=== PATIENT | female | born 1960 | race Hispanic/Latino ===

== ENCOUNTER 2017-01-12 10:37 | Day surgery (SDC) | payer BC, OTHER ==
[~2017-01-12 10:37] MED LIST: ANCEF/STERILE WATER 2 GM/20 ML IV NR; NACL 0.9% 1000 ML 1,000 ML IV SCH; PEPCID PO NR; VERSED IV NR
[2017-01-12] MEDS ORDERED: NEO SYNEPHRINE/NS Syringe(OR USE) IV ONE (11:00)
--- NOTE | 2017-01-12 11:26 | Anesthesia Day of Surgery ---
Anesthesia Day of Surgery - Day of Surgery Patient Examined: Yes Patient H&P Reviewed: Yes Patient is NPO: Yes
--- NOTE | 2017-01-12 11:27 | Anesthesia Consultation ---
Anesthesia Consult and Med Hx Date of service: 01/12/17 - Airway Anesthetic Teeth Evaluation: Good, Partials ROM Head & Neck: Adequate Mental/Hyoid Distance: Adequate Mallampati Class: Class II Intubation Access Assessment: Probably Good - Pulmonary Exam CTA: Yes - Cardiac Exam Cardiac Exam: RRR - Pre-Operative Health Status ASA Pre-Surgery Classification: ASA3 Proposed Anesthetic Plan: General - Pulmonary Hx Smoking: Yes (1-1 1/2 PPD X 40 YRS) Hx Asthma: No COPD: Yes (NO MEDS) Hx Pneumonia: No Hx Sleep Apnea: No (ADI PRE SCREEN LOW RISK) - Cardiovascular System Hx Hypertension: Yes (X 8 YRS) - Central Nervous System 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
[2017-01-12] MEDS ORDERED: ZOFRAN IV PRN (11:29)
[2017-01-12] MEDS ORDERED: SUBLIMAZE ONE (11:44)
[2017-01-12] MEDS ORDERED: DIPRIVAN 10 MG/ML IV ONE ×2 (11:44→12:52)
[2017-01-12] MEDS ORDERED: XYLOCAINE MPF 2% ONE (11:45)
[2017-01-12] MEDS ORDERED: OMNIPAQUE (300 MG) IR ONE (13:26)
--- NOTE | 2017-01-12 13:39 | Short Stay Summary ---
Short Stay Documentation Date of service: 01/12/17 - History H&P: obtained from office - Allergies and Medications Current Medications: Allergies No Known Allergies Allergy (Verified 05/06/14 08:26) Home Medications Medication Instructions Recorded Confirmed Last Taken Type Levothyroxine [Synthroid] 25 mcg PO QAM 05/06/14 01/11/17 01/12/17 07:30 History Lisinopril [Zestril] 20 mg PO DAILY 05/06/14 01/11/17 01/12/17 07:30 History Sitagliptin Phos/Metformin HCl 1 each PO DAILY 05/06/14 01/11/17 01/11/17 History [Janumet 50-500 mg Tablet] HYDROcodone/APAP 5-325 [[place] 1 tab PO PRN PRN 01/11/17 01/11/17 01/11/17 History 5-325 mg TAB] Ketorolac [Toradol] 10 mg PO Q6H PRN 01/11/17 01/11/17 01/12/17 07:30 History Ondansetron [Zofran TAB] 4 mg PO Q8HR PRN 01/11/17 01/11/17 01/11/17 History Simvastatin [Zocor TAB] 20 mg PO QHS 01/11/17 01/11/17 01/12/17 07:30 History Active Medications Cefazolin Sodium (Ancef/Sterile Water 2 Gm/20 Ml) 2 gm IV PREOP NR Stop: 01/12/17 23:59 Famotidine (Pepcid) 20 mg PO PREOP NR Stop: 01/12/17 15:00 Last Admin: 01/12/17 11:33 Dose: 20 mg Hydromorphone HCl (Dilaudid) 0.5 mg IV Q10MIN PRN PRN Reason: Pain , Severe (7-10) Stop: 01/15/17 11:28 Sodium Chloride (Nacl 0.9% 1000 Ml) 1,000 mls @ 75 mls/hr IV DIRECT CHPAITO Last Admin: 01/12/17 11:20 Dose: 75 mls/hr Midazolam HCl (Versed) 2 mg IV PREOP NR Stop: 01/12/17 23:59 Last Admin: 01/12/17 12:32 Dose: 2 mg - Brief post op/procedure progress note Date of procedure: 01/12/17 Pre-op diagnosis: bilat kidney stones, left flank pain Post-op diagnosis: same Procedure: cysto, rpg, left stent Anesthesia: LAVONNE Surgeon: CHULA PAINTING Estimated blood loss: none Condition: stable - Hospital course Hospital course: cipro,norfarzana,zofran, & post op info on chart - Disposition Condition at discharge: Stable Disposition: DC-01 TO HOME OR SELFCARE
[2017-01-12] MEDS ORDERED: ZOFRAN ONE (13:45)
[2017-01-12] MEDS: DILAUDID IV PRN ×2 (14:25→14:35)
--- NOTE | 2017-01-12 14:30 | Operative Report ---
PREOPERATIVE DIAGNOSES: Bilateral renal stones, left flank pain. POSTOPERATIVE DIAGNOSES: Bilateral renal stones, left flank pain. PROCEDURE: Cystoscopy, bilateral retrograde pyelograms, left double-J stent placement (staged procedure). SURGEON: Chance Maciel MD ANESTHESIA: General. ANESTHESIOLOGIST: Marlene John MD ESTIMATED BLOOD LOSS: Minimal. FLUIDS: Crystalloid. COMPLICATIONS: No complications. INDICATIONS: This 56-year-old female seen in the office for back pain. CT of abdomen and pelvis revealed 9 mm stones bilaterally. The patient was scheduled for elective staged lithotripsy; however, in the interim, her pain worsened on the left side. She presents now for stent placement prior to lithotripsy. DESCRIPTION OF PROCEDURE: The patient was taken to the operative suite, placed in a supine position. After adequate general anesthesia, placed in a dorsal lithotomy position, prepped and draped in a sterile fashion. Pancystourethroscopy was performed with 22 Slovak Storz cystoscope, no acute bladder pathology. No stones or tumors were noted. Bilateral retrograde pyelograms were obtained with an 8 Slovak Scott catheter and 8 mL of contrast, 8-9 mm stone could be appreciated in the right kidney, nonobstructing. The left side was in the proximal ureter at the level between L3-L4. A 0.035 Glidewire was placed followed by 6-Slovak 24 cm double-J stent with a short internal string. X-ray confirmed adequate position. The patient was extubated and taken to recovery room to have postoperative instructions as well as Cipro, [place], and Zofran. JOB# [id number] [facility]/NTS
--- NOTE | 2017-01-12 14:41 | Post Anesthesia Evaluation ---
- Post Anesthesia Evaluation Patient Participated: Yes Airway Patent: Yes Stable Respiratory Function: Yes Nausea/Vomiting: No Temp > 96.8F: Yes Pain Manageable: Yes Adequeate Hydration: Yes Anesthesia Complications: No Block Receding Appropriately: Not Applicable Patient on Ventilator: No
[2017-01-12] MEDS ORDERED: NORCO 5/325 PO PRN (15:00)
[2017-01-12 15:41] VITALS: BP 149/72
--- NOTE | 2017-01-12 16:00 | Fluoroscopy Report ---
Retrograde pyelogram. History: Left renal calculi. Findings: The right pyelocalyceal system and ureter are normal. There is an ovoid filling defect in the proximal third of the left ureter with mild left pyelocaliectasis. The ureter distal to this point is normal. A double-J ureteral stent is demonstrated on the final image in satisfactory position.
== END 2017-01-12 15:35 | disposition home or self-care (01) ==
LOC: OR 10:37
PROVIDERS: ATTEND Urology
DX: N20.0 Calculus of kidney (principal); I10 Essential (primary) hypertension; J44.9 Chronic obstructive pulmonary disease, unspecified; E03.9 Hypothyroidism, unspecified; E11.9 Type 2 diabetes mellitus without complications; F17.210 Nicotine dependence, cigarettes, uncomplicated; Z86.73 Personal history of transient ischemic attack (TIA), and cerebral infarction without residual deficits; Z90.49 Acquired absence of other specified parts of digestive tract; Z90.710 Acquired absence of both cervix and uterus; Z79.899 Other long term (current) drug therapy
CPT/HCPCS: 52332; 74420; 82962; C1758; C1769; C2617; J0690; J1170; J2250; J2370; J2405; J2704; J3010; J7030; Q9967

== ENCOUNTER 2017-01-27 08:49 | Day surgery (SDC) | payer BC ==
--- NOTE | 2017-01-27 10:57 | Short Stay Summary ---
Short Stay Documentation Date of service: 01/27/17 - History H&P: obtained from office - Allergies and Medications Current Medications: Allergies No Known Allergies Allergy (Verified 05/06/14 08:26) Home Medications Medication Instructions Recorded Confirmed Last Taken Type Levothyroxine [Synthroid] 25 mcg PO QAM 05/06/14 01/27/17 01/27/17 04:00 History Lisinopril [Zestril] 40 mg PO DAILY 05/06/14 01/27/17 01/26/17 04:00 History Sitagliptin Phos/Metformin HCl 1 each PO DAILY 05/06/14 01/27/17 01/26/17 09:00 History [Janumet 50-500 mg Tablet] HYDROcodone/APAP 5-325 [[place] 1 tab PO PRN PRN 01/11/17 01/27/17 1 Week Ago History 5-325 mg TAB] Ketorolac [Toradol] 10 mg PO Q6H PRN 01/11/17 01/27/17 1 Week Ago History Ondansetron [Zofran TAB] 4 mg PO Q8HR PRN 01/11/17 01/27/17 2 Weeks Ago History Simvastatin [Zocor TAB] 20 mg PO QHS 01/11/17 01/27/17 01/26/17 20:00 History - Brief post op/procedure progress note Date of procedure: 01/27/17 Pre-op diagnosis: left upj 8mm stone Post-op diagnosis: same Procedure: left renal eswl Anesthesia: GETA Findings: left renal stone 8mm / stent good vis, good frag Surgeon: MILAGROS TATE Estimated blood loss: minimal Pathology: none Condition: stable - Hospital course Hospital course: or pacu home - Disposition Condition at discharge: Good Disposition: DC-01 TO HOME OR SELFCARE Short Stay Discharge Plan Activity: advance as tolerated Diet: advance as tolerated Follow up with: MILAGROS TATE MD [Staff Physician] - 7 Days
--- NOTE | 2017-01-27 11:06 | Anesthesia Day of Surgery ---
Anesthesia Day of Surgery - Day of Surgery Patient Examined: Yes Patient H&P Reviewed: Yes Patient is NPO: Yes
--- NOTE | 2017-01-27 11:06 | Anesthesia Consultation ---
Anesthesia Consult and Med Hx Date of service: 01/27/17 - Airway Anesthetic Teeth Evaluation: Good ROM Head & Neck: Adequate Mental/Hyoid Distance: Adequate Mallampati Class: Class II Intubation Access Assessment: Probably Good - Pulmonary Exam CTA: Yes - Cardiac Exam Cardiac Exam: RRR - Pre-Operative Health Status ASA Pre-Surgery Classification: ASA3 Proposed Anesthetic Plan: General - Pulmonary Hx Smoking: Yes (1-1 1/2 PPD X 40 YRS) Hx Asthma: No COPD: Yes (NO MEDS) Hx Pneumonia: No Hx Sleep Apnea: No (ADI PRE SCREEN LOW RISK) - Cardiovascular System Hx Hypertension: Yes (X 8 YRS) - Central Nervous System CVA: Yes (MILD CVA-VS TIA 2013 , MILD LEFT FACE DROOPING) - Endocrine Hx Renal Disease: No (stones) Hx End Stage Renal Disease: No Hx Non-Insulin Dependent Diabetes: No Hx Thyroid Disease: Yes Hx Hypothyroidism: Yes - Other Systems Hx Cancer: No Hx Obesity: No
[2017-01-27] MEDS ORDERED: ceFAZolin 2 GM in NACL 0.9% 100 ML IV ONE (11:08)
[2017-01-27] MEDS ORDERED: DIPRIVAN 10 MG/ML IV ONE (11:17)
[2017-01-27] MEDS ORDERED: XYLOCAINE MPF 2% ONE (11:18)
[2017-01-27] MEDS ORDERED: DECADRON ONE (11:18)
[2017-01-27] MEDS ORDERED: ZOFRAN ONE (11:19)
[2017-01-27] MEDS ORDERED: ANCEF/STERILE WATER 2 GM/20 ML 2 GM/20 ML SYRINGE IV NR (12:00)
[2017-01-27] MEDS ORDERED: NACL 0.9% 1000 ML 1,000 ML IV SCH (12:00)
[2017-01-27] MEDS ORDERED: PEPCID PO NR (12:00)
[2017-01-27] MEDS ORDERED: VERSED IV NR (12:00)
[2017-01-27] MEDS ORDERED: DILAUDID ONE ×2 (12:18→13:23)
[2017-01-27] MEDS: DILAUDID IV PRN ×2 (13:20→13:30)
--- NOTE | 2017-01-27 15:09 | Operative Report ---
PREOPERATIVE DIAGNOSIS: Bilateral renal stones, left renal stone 8 mm. POSTOPERATIVE DIAGNOSIS: Bilateral renal stones, left renal stone 8 mm. PROCEDURE: Left renal ESWL. SURGEON: Luis Cardenas MD ANESTHESIA: General. SPECIMENS: None. ESTIMATED BLOOD LOSS: Minimal. COMPLICATIONS: None. IMPLANTS: None. CLINICAL INDICATIONS: The patient had undergone a stent placement and scheduled for the staged procedure, had antibiotics, SCDs, and questions answered. DESCRIPTION OF PROCEDURE: The patient transferred to OR suite in supine position. Biplanar fluoroscopy was used to target the stone. Once again, this was the left side. The stent was visualized clearly ____ stent was curving and maybe towards the lower pole. The stone was probably pushed back towards the lower pole. No ureteral stone was identified. Of course, there was some bowel overlying this area making it a little bit difficult. Possible stone on the more lateral aspect of the ____. At this point, anesthesia begun, prepped and draped her in standard fashion. Biplanar fluoroscopy was used to target the stone ____ 1800 shocks at maximum 5 kilovolts. We could not see the stone at all ____ stone fragments more lateral. We did reposition and fragmented some stone more lateral and fragmented and did some shockwaves to this area with only mild decrease in density. At this point, the patient was awakened and transferred to the PACU in good and stable condition. This is a staged procedure for future removal of stent and staged procedure to treat other bilateral renal stones. JOB# [id number] [facility]/NTS
[2017-01-27] MEDS ORDERED: ZOFRAN IV PRN (15:11)
[2017-01-27 18:46] VITALS: BP 132/74
== END 2017-01-27 16:01 | disposition home or self-care (01) ==
LOC: OR 08:49
PROVIDERS: ATTEND Urology
DX: N20.0 Calculus of kidney (principal); E11.9 Type 2 diabetes mellitus without complications; I10 Essential (primary) hypertension; E03.9 Hypothyroidism, unspecified; J44.9 Chronic obstructive pulmonary disease, unspecified; F17.210 Nicotine dependence, cigarettes, uncomplicated; Z90.49 Acquired absence of other specified parts of digestive tract; Z90.710 Acquired absence of both cervix and uterus; Z86.73 Personal history of transient ischemic attack (TIA), and cerebral infarction without residual deficits
CPT/HCPCS: 50590; 82962; J1100; J1170; J2250; J2405; J2704; J7030

== ENCOUNTER 2017-02-24 07:22 | Day surgery (SDC) | payer BC ==
[~2017-02-24 07:22] MED LIST changes: -NACL 0.9% 1000 ML 1,000 ML IV SCH; -PEPCID PO NR; -VERSED IV NR
[2017-02-24] MEDS ORDERED: NACL 0.9% 1000 ML 1,000 ML IV SCH (09:00)
[2017-02-24] MEDS ORDERED: VERSED IV NR (09:00)
[2017-02-24] MEDS ORDERED: PEPCID PO NR (09:00)
--- NOTE | 2017-02-24 09:00 | Anesthesia Consultation ---
Anesthesia Consult and Med Hx Date of service: 02/24/17 - Airway Anesthetic Teeth Evaluation: Partials ROM Head & Neck: Adequate Mental/Hyoid Distance: Adequate Mallampati Class: Class II Intubation Access Assessment: Probably Good - Pulmonary Exam CTA: Yes - Cardiac Exam Cardiac Exam: RRR - Pre-Operative Health Status ASA Pre-Surgery Classification: ASA3 Proposed Anesthetic Plan: General - Pulmonary Hx Smoking: Yes (1- 1/2 PPD X 40 YRS) Hx Asthma: No COPD: Yes Home Oxygen Therapy: No Hx Pneumonia: No Hx Sleep Apnea: No (ADI PRE SCREEN LOW RISK) - Cardiovascular System Hx Hypertension: Yes (X 8 YRS) - Central Nervous System 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
--- NOTE | 2017-02-24 09:00 | Anesthesia Day of Surgery ---
Anesthesia Day of Surgery - Day of Surgery Patient Examined: Yes Patient H&P Reviewed: Yes Patient is NPO: Yes
[2017-02-24] MEDS ORDERED: XYLOCAINE MPF 2% ONE (09:56)
[2017-02-24] MEDS ORDERED: ZOFRAN ONE (09:56)
[2017-02-24] MEDS ORDERED: DIPRIVAN 10 MG/ML IV ONE (09:56)
[2017-02-24] MEDS ORDERED: SUBLIMAZE ONE (09:56)
[2017-02-24] MEDS ORDERED: WATER FOR IRRIG STERILE IR ONE ×2 (10:15)
[2017-02-24] MEDS ORDERED: ePHEDrine SULFATE ONE (10:20)
[2017-02-24] MEDS ORDERED: NACL 0.9% 1000 ML 1,000 ML ONE (10:36)
[2017-02-24] MEDS ORDERED: DILAUDID IV PRN (11:10)
--- NOTE | 2017-02-24 11:53 | Short Stay Summary ---
Short Stay Documentation Date of service: 02/24/17 - History H&P: obtained from office - Allergies and Medications Current Medications: Allergies No Known Allergies Allergy (Verified 05/06/14 08:26) Home Medications Medication Instructions Recorded Confirmed Last Taken Type Levothyroxine [Synthroid] 25 mcg PO QAM 05/06/14 02/24/17 02/24/17 03:00 History Lisinopril [Zestril] 40 mg PO DAILY 05/06/14 02/24/17 02/24/17 03:00 History HYDROcodone/APAP 5-325 [[place] 1 tab PO PRN PRN 01/11/17 02/17/17 1 Week Ago History 5-325 mg TAB] Ketorolac [Toradol] 10 mg PO Q6H PRN 01/11/17 02/17/17 1 Week Ago History Ondansetron [Zofran TAB] 4 mg PO Q8HR PRN 01/11/17 02/17/17 2 Weeks Ago History AtorvaSTATin [Lipitor] 40 mg PO DAILY 02/24/17 02/24/17 02/24/17 03:00 History Empagliflozin [Jardiance] 25 mg PO DAILY 02/24/17 02/24/17 02/23/17 05:30 History Umeclidinium [place] [Incruse 62.5 mcg INHALATION PRN 02/24/17 02/24/17 08:21 History Ellipta] amLODIPine [Norvasc] 5 mg PO DAILY 02/24/17 02/24/17 02/24/17 03:00 History Active Medications Cefazolin Sodium (Ancef/Sterile Water 2 Gm/20 Ml) 2 gm IV PREOP NR Stop: 02/24/17 23:59 Famotidine (Pepcid) 20 mg PO PREOP NR Stop: 02/24/17 12:00 Last Admin: 02/24/17 08:54 Dose: 20 mg Hydromorphone HCl (Dilaudid) 0.5 mg IV Q10MIN PRN PRN Reason: Pain , Severe (7-10) Stop: 02/24/17 13:00 Sodium Chloride (Nacl 0.9% 1000 Ml) 1,000 mls @ 75 mls/hr IV DIRECT CHAPITO Last Admin: 02/24/17 08:53 Dose: 75 mls/hr Midazolam HCl (Versed) 2 mg IV PREOP NR Stop: 02/24/17 23:59 Last Admin: 02/24/17 08:54 Dose: 2 mg Ondansetron HCl (Zofran) 4 mg IV ONCE PRN PRN Reason: Nausea And Vomiting Stop: 02/24/17 12:01 - Brief post op/procedure progress note Date of procedure: 02/24/17 Pre-op diagnosis: LT stent,Rt renal stones lgst 9mm Post-op diagnosis: same Procedure: cysto left stent pull, rt renal eswl Anesthesia: GETA Findings: mild dec density good vis Surgeon: MILAGROS TATE Estimated blood loss: minimal Pathology: none Condition: stable - Hospital course Hospital course: or pacu home - Disposition Condition at discharge: Good Disposition: DC-01 TO HOME OR SELFCARE Short Stay Discharge Plan Activity: advance as tolerated Diet: advance as tolerated Follow up with: MILAGROS TATE MD [Staff Physician] - 7 Days Forms: Outpatient Surgery [facility] Inst.
[2017-02-24] MEDS ORDERED: ZOFRAN IV PRN (12:00)
[2017-02-24 14:07] VITALS: BP 159/79
--- NOTE | 2017-02-24 16:57 | Operative Report ---
PREOPERATIVE DIAGNOSES: 1.Left ureteral stent. 2.Right renal 9 mm stone. POSTOPERATIVE DIAGNOSES: 1.Left ureteral stent. 2.Right renal 9 mm stone. PROCEDURE: 1. Right renal ESWL. 2. Cystoscopy, left ureteral stent removal. SURGEON: Luis Cardenas MD ANESTHESIA: General. SPECIMENS: None. ESTIMATED BLOOD LOSS: Minimal. IMPLANTS: None. COMPLICATIONS: None. FINDINGS: Stent removed easily, right stone with mild to moderate decrease in density at the end of procedure. CLINICAL INDICATIONS: Counseled RCBA, antibiotics, SCDs by primary urologist. He desired to proceed. DESCRIPTION OF PROCEDURE: Transferred to OR suite in supine position, anesthesia begun, ____ prepped and draped in standard fashion. A 22-E[place]ian scope passed. Stent grasped with alligator forceps, pulled out intact, bladder drained with catheter. At this point, the patient in supine position, biplanar fluoroscopy to target the stone on the right side with an F2. There was good visualization of the stone. A total of 2500 shocks were delivered with intermittent repositioning as necessary. There was good decreased density of the stone. Maximum of 5.0 kilovolts were used for short duration of the procedure. The patient awakened and transferred to PACU in good and stable condition. JOB# [id number] [facility]/NTS
== END 2017-02-24 12:45 | disposition home or self-care (01) ==
LOC: OR 07:22
PROVIDERS: ATTEND Urology
DX: N20.0 Calculus of kidney (principal); E11.9 Type 2 diabetes mellitus without complications; F17.210 Nicotine dependence, cigarettes, uncomplicated; I10 Essential (primary) hypertension; J44.9 Chronic obstructive pulmonary disease, unspecified; E03.9 Hypothyroidism, unspecified; Z90.710 Acquired absence of both cervix and uterus; Z86.73 Personal history of transient ischemic attack (TIA), and cerebral infarction without residual deficits; Z46.6 Encounter for fitting and adjustment of urinary device; Z90.49 Acquired absence of other specified parts of digestive tract
CPT/HCPCS: 50590; 82962; A4217; J0690; J2250; J2405; J2704; J3010; J7030